=== PATIENT | male | born 1980 | race Two or more races ===

== ENCOUNTER 2022-04-05 09:25 | Emergency (ER) | payer OTHER ==
[~2022-04-05] VITALS: Ht 177.8 cm; Wt 95.3 kg
[2022-04-05] MEDS ORDERED: KETO10TA2 PO (12:30)
== END 2022-04-05 12:35 | disposition home or self-care (01) ==
LOC: ER 09:25
DX: N50.811 Right testicular pain (principal); N45.1 Epididymitis; N50.3 Cyst of epididymis

== ENCOUNTER 2022-04-16 11:24 | Emergency (ER) | payer OTHER ==
[~2022-04-16] VITALS: Ht 177.8 cm; Wt 95.3 kg
[~2022-04-16 11:24] MED LIST: KETO10TA2 PO
== END 2022-04-16 16:10 | disposition home or self-care (01) ==
LOC: ER 11:24
DX: R10.2 Pelvic and perineal pain (principal); R10.31 Right lower quadrant pain